=== PATIENT | female | born 1990 | race Caucasian/White ===

== ENCOUNTER 2018-10-21 15:10 | Emergency (ER) | payer SELFPAY | END 2018-10-21 21:13 | disposition left against medical advice (07) | LOC: FTE 15:10 | DX: Z53.21 Procedure and treatment not carried out due to patient leaving prior to being seen by health care provider (principal) ==

== ENCOUNTER 2019-04-26 14:32 | Inpatient (IN) | payer MEDICAID ==
[2019-04-26] MEDS: LACTATED RINGER'S 1,000 ML IV ×3 (16:01→21:55)
[2019-04-26] MEDS: TERBUTALINE 1 MG/ML INJ SC (19:27)
[2019-04-26] MEDS: NIFEdipine 10 MG CAP PO (19:30)
[2019-04-26] MEDS: BETAMET NA PHOS/AC(6 MG/ML) 2 ML INJ SYG IM (19:54)
[2019-04-27] MEDS: DIPHENHYDRAMINE 50 MG CAP PO (03:50)
[2019-04-27] MEDS: NIFEdipine 10 MG CAP PO (05:56)
[2019-04-27] MEDS: LACTATED RINGER'S 1,000 ML IV ×2 (05:58→20:52)
[2019-04-27] MEDS: ACYCLOVIR 400 MG TAB PO ×2 (09:00→21:10)
[2019-04-27] MEDS: PRENATAL VITAMIN PO (09:00)
[2019-04-27] MEDS: FERROUS SULFATE (EC) 325 MG TAB PO (09:00)
[2019-04-27] MEDS ORDERED: TERBUTALINE 1 ML (09:27)
[2019-04-27] MEDS: TERBUTALINE 1 MG/ML INJ SC (09:55)
[2019-04-27] MEDS: CEFAZOLIN 2 GM/50 ML (PMX) 50 ML IVPB ×2 (10:00→21:10)
[2019-04-27] MEDS: BETAMET NA PHOS/AC(6 MG/ML) 5ML INJ IM (10:30)
[2019-04-27] MEDS ORDERED: BETAMET NA PHOS/AC(6 MG/ML) 5ML INJ IM (10:30)
[2019-04-27] MEDS: BETAMET NA PHOS/AC(6 MG/ML) 2 ML INJ SYG IM (10:32)
[2019-04-27] MEDS: MAGNESIUM SULFATE 4 GM/100 ML 100 ML IV (10:41)
[2019-04-27] MEDS: MAGNESIUM SULFATE 20 GM/500 ML 500 ML IV (11:09)
[2019-04-27] MEDS ORDERED: MISOPROSTOL 200 MCG TAB PR ×2 (13:30→19:00)
[2019-04-27] MEDS ORDERED: CARBOPROST 250 MCG INJ IM ×2 (13:30→19:00)
[2019-04-27] MEDS ORDERED: OXYTOCIN 30 UNITS/LR 500 ML IV ×2 (13:30→19:00)
[2019-04-27] MEDS ORDERED: METHYLERGONOVINE 0.2 MG INJ IM ×2 (13:30→19:00)
[2019-04-27 13:40] LABS: ADD MAN DIFF? NO
[2019-04-27 13:42] LABS: BASOPHILS % 0.1 % (0.0-2.0); HEMATOCRIT 31.6 % (37.0-47.0); HEMOGLOBIN 10.8 g/dl (12.0-16.0); LYMPHOCYTES # 0.9 10^3/ul (0.8-2.9); LYMPHOCYTES % 6.5 % (15.0-51.0); MEAN CORPUSCULAR HEMOGLOBIN 32.7 pg (29.0-33.0); MEAN CORPUSCULAR HGB CONC 34.2 g/dl (32.0-37.0); MEAN CORPUSCULAR VOLUME 95.8 fl (82.0-101.0); MEAN PLATELET VOLUME 9.5 fl (7.4-10.4); MONOCYTE # 0.3 10^3/ul (0.3-0.9); NEUTROPHIL # 12.1 10^3/ul (1.6-7.5); NEUTROPHILS % 89.9 % (39.0-77.0); PLATELET COUNT 174 10^3/UL (140-415); RED CELL DISTRIBUTION WIDTH 12.8 % (11.5-14.5)
[2019-04-27 13:42] LABS: WHITE BLOOD COUNT 13.5 10^3/ul (4.8-10.8)
[2019-04-27] MEDS ORDERED: OXYTOCIN 10 UNIT INJ (13:46)
[2019-04-27] MEDS ORDERED: morphine SULFATE/PF (10 MG/10 ML) INJ (13:46)
[2019-04-27] MEDS ORDERED: FENTAnyl 50 MCG/ML VIAL (13:46)
[2019-04-27] MEDS ORDERED: ONDANSETRON 4 MG INJ (13:46)
[2019-04-27 14:08] LABS: INR 0.89; PARTIAL THROMBOPLASTIN TIME 22.9 Sec (23.0-35.0); PROTIME 12.2 Sec (11.9-14.9)
[2019-04-27] MEDS ORDERED: PHENYLephrine (100 MCG/ML) 10ML SYG (14:14)
[2019-04-27 14:31] LABS: HEPATITIS B SURFACE ANTIGEN NEGATIVE (NEGATIVE)
[2019-04-27] MEDS: ACETAMINOPHEN 500 MG TAB PO (14:50)
[2019-04-27] MEDS ORDERED: ONDANSETRON 4 MG INJ IV ×2 (15:00→17:30)
[2019-04-27] MEDS ORDERED: NALBUPHINE HCL (10 MG/1 ML) INJ IV ×2 (15:00→17:30)
[2019-04-27] MEDS ORDERED: TRIMETHOBENZAMIDE 100 MG/ML VIAL IM ×2 (15:00→17:30)
[2019-04-27] MEDS: AZITHROMYCIN 500MG/NS (PMX) 250 ML IVPB (15:00)
[2019-04-27] MEDS ORDERED: DIPHENHYDRAMINE 50 MG INJ IV ×2 (15:00→17:30)
[2019-04-27] MEDS: KETOROLAC 30 MG INJ IV (15:51)
[2019-04-27] MEDS: OXYTOCIN 30 UNITS/LR 500 ML IV (17:17)
[2019-04-27] MEDS ORDERED: morphine 2 MG INJ IV (17:30)
[2019-04-27] MEDS ORDERED: NALOXONE (0.4 MG/ML) INJ IV (17:30)
[2019-04-27 18:26] LABS: RAPID PLASMA REAGIN NONREACTIVE (NR)
[2019-04-27] MEDS ORDERED: NA PHOSPHATE/BIPHOS 133 ML ENEMA PR (19:00)
[2019-04-27] MEDS ORDERED: HYDROCODONE/APAP (5/325) TAB PO (19:00)
[2019-04-27] MEDS ORDERED: OXYCODONE/ACETAMINOPHEN (5/325) TAB PO (19:00)
[2019-04-27] MEDS: morphine 2 MG INJ IV (20:53)
[2019-04-27] MEDS: SENNA/DOCUSATE NA (8.6MG/50MG) TAB PO (21:00)
[2019-04-27] MEDS: IBUPROFEN 800 MG TAB PO (22:00)
[2019-04-28] MEDS: CEFAZOLIN 2 GM/50 ML (PMX) 50 ML IVPB ×2 (05:57→13:55)
[2019-04-28] MEDS: CLINDAMYCIN 300 MG CAP PO ×4 (05:57→18:01)
[2019-04-28] MEDS: LANOLIN HPA 1 PKT TOP (05:57)
[2019-04-28] MEDS: IBUPROFEN 800 MG TAB PO ×3 (06:00→21:52)
[2019-04-28] MEDS: LACTATED RINGER'S 1,000 ML IV (06:01)
[2019-04-28 06:49] LABS: ADD MAN DIFF? NO
[2019-04-28 06:54] LABS: BASOPHILS % 0.1 % (0.0-2.0); HEMATOCRIT 28.8 % (37.0-47.0); HEMOGLOBIN 9.9 g/dl (12.0-16.0); LYMPHOCYTES # 1.5 10^3/ul (0.8-2.9); LYMPHOCYTES % 10.6 % (15.0-51.0); MEAN CORPUSCULAR HEMOGLOBIN 32.8 pg (29.0-33.0); MEAN CORPUSCULAR HGB CONC 34.4 g/dl (32.0-37.0); MEAN CORPUSCULAR VOLUME 95.4 fl (82.0-101.0); MEAN PLATELET VOLUME 10.1 fl (7.4-10.4); MONOCYTE # 1.1 10^3/ul (0.3-0.9); MONOCYTES % 8.2 % (0.0-11.0); NEUTROPHILS % 79.7 % (39.0-77.0); PLATELET COUNT 159 10^3/UL (140-415); RED BLOOD COUNT 3.02 10^6/ul (4.20-5.40)
[2019-04-28 06:54] LABS: WHITE BLOOD COUNT 13.8 10^3/ul (4.8-10.8)
[2019-04-28] MEDS: morphine 2 MG INJ IV (08:40)
[2019-04-28] MEDS: SENNA/DOCUSATE NA (8.6MG/50MG) TAB PO ×2 (08:40→21:52)
[2019-04-28] MEDS: ACYCLOVIR 400 MG TAB PO ×3 (08:40→21:53)
[2019-04-28] MEDS: BISACODYL 10 MG SUPP PR (18:01)
[2019-04-29] MEDS: CLINDAMYCIN 300 MG CAP PO ×5 (00:38→23:43)
[2019-04-29] MEDS: IBUPROFEN 800 MG TAB PO ×3 (06:10→21:36)
[2019-04-29 08:56] LABS: ADD MAN DIFF? NO
[2019-04-29 09:05] LABS: BASOPHILS % 0.2 % (0.0-2.0); EOSINOPHILS # 0.1 10^3/ul (0.0-0.5); EOSINOPHILS % 0.5 % (0.0-7.0); HEMATOCRIT 38.4 % (37.0-47.0); HEMOGLOBIN 12.8 g/dl (12.0-16.0); LYMPHOCYTES # 2.7 10^3/ul (0.8-2.9); LYMPHOCYTES % 15.5 % (15.0-51.0); MEAN CORPUSCULAR HGB CONC 33.3 g/dl (32.0-37.0); MEAN PLATELET VOLUME 10.3 fl (7.4-10.4); MONOCYTE # 1.3 10^3/ul (0.3-0.9); MONOCYTES % 7.4 % (0.0-11.0); NEUTROPHIL # 12.9 10^3/ul (1.6-7.5); NEUTROPHILS % 75.1 % (39.0-77.0); PLATELET COUNT 240 10^3/UL (140-415); RED BLOOD COUNT 3.88 10^6/ul (4.20-5.40); RED CELL DISTRIBUTION WIDTH 13.2 % (11.5-14.5)
[2019-04-29 09:05] LABS: WHITE BLOOD COUNT 17.1 10^3/ul (4.8-10.8)
[2019-04-29] MEDS: SENNA/DOCUSATE NA (8.6MG/50MG) TAB PO ×2 (10:08→20:38)
[2019-04-29] MEDS: ACYCLOVIR 400 MG TAB PO ×3 (10:08→20:38)
[2019-04-29] MEDS: CIPROFLOXACIN 500 MG TAB PO ×2 (17:26→18:00)
[2019-04-30] MEDS: IBUPROFEN 800 MG TAB PO ×2 (05:37→15:32)
[2019-04-30] MEDS: CLINDAMYCIN 300 MG CAP PO ×3 (05:37→18:20)
[2019-04-30] MEDS: CIPROFLOXACIN 500 MG TAB PO ×2 (05:37→18:20)
[2019-04-30 08:30] LABS: ADD MAN DIFF? NO
[2019-04-30 08:38] LABS: WHITE BLOOD COUNT 13.7 10^3/ul (4.8-10.8)
[2019-04-30 08:38] LABS: BASOPHIL # 0.1 10^3/ul (0.0-0.1); BASOPHILS % 0.4 % (0.0-2.0); EOSINOPHILS # 0.3 10^3/ul (0.0-0.5); EOSINOPHILS % 2.3 % (0.0-7.0); HEMATOCRIT 38.5 % (37.0-47.0); LYMPHOCYTES # 2.5 10^3/ul (0.8-2.9); LYMPHOCYTES % 18.4 % (15.0-51.0); MEAN CORPUSCULAR HEMOGLOBIN 31.9 pg (29.0-33.0); MEAN CORPUSCULAR HGB CONC 33.8 g/dl (32.0-37.0); MEAN CORPUSCULAR VOLUME 94.6 fl (82.0-101.0); MEAN PLATELET VOLUME 10.2 fl (7.4-10.4); MONOCYTE # 0.9 10^3/ul (0.3-0.9); MONOCYTES % 6.4 % (0.0-11.0); NEUTROPHIL # 9.7 10^3/ul (1.6-7.5); NEUTROPHILS % 70.8 % (39.0-77.0); PLATELET COUNT 232 10^3/UL (140-415); RED BLOOD COUNT 4.07 10^6/ul (4.20-5.40); RED CELL DISTRIBUTION WIDTH 12.9 % (11.5-14.5)
[2019-04-30] MEDS: MEASLES,MUMPS,RUBELLA VACCINE INJ SC* (09:00)
[2019-04-30] MEDS: DIPHTH/TET/ACEL PERTUSS (ADULT) 0.5 ML VIAL IM* (09:00)
[2019-04-30] MEDS: SENNA/DOCUSATE NA (8.6MG/50MG) TAB PO ×2 (09:46→21:00)
[2019-04-30] MEDS: ACYCLOVIR 400 MG TAB PO ×3 (09:46→21:00)
[2019-04-30] MEDS ORDERED: ACETAMINOPHEN 325 MG TAB PO (19:00)
== END 2019-04-30 20:15 | disposition home or self-care (01) | DRG 786 ==
LOC: OBT 14:32 → L-D 14:33 → OBT 15:26 → L-D 15:26 → PP1 04-27 18:25
PROVIDERS: Obstetrics & Gynecology
PROC: 10D00Z1 Extraction of Products of Conception, Low, Open Approach (ICD-10-PCS; principal; 2019-04-27 13:00)
DX: O76 Abnormality in fetal heart rate and rhythm complicating labor and delivery (principal); O60.13X0 Preterm labor second trimester with preterm delivery third trimester, not applicable or unspecified; O36.8130 Decreased fetal movements, third trimester, not applicable or unspecified; O77.0 Labor and delivery complicated by meconium in amniotic fluid; Z3A.36 36 weeks gestation of pregnancy; Z37.0 Single live birth
CPT/HCPCS: 76815; 76818; 85025; 85610; 85730; 86592; 86850; 86900; 86901; 87340; 99464